=== PATIENT | female | born 2000 | race Caucasian/White ===

== ENCOUNTER 2022-07-02 17:35 | Emergency (ER) | payer SELFPAY ==
[~2022-07-02] VITALS: Ht 175.3 cm; Wt 66.9 kg
== END 2022-07-02 19:16 | disposition home or self-care (01) ==
LOC: ED 17:35
DX: R41.0 Disorientation, unspecified (principal); Z88.2 Allergy status to sulfonamides; Z88.8 Allergy status to other drugs, medicaments and biological substances
CPT/HCPCS: 99284